=== PATIENT | female | born 1965 | race Caucasian/White ===

== ENCOUNTER 2019-11-16 11:38 | Observation (INO) | payer BC, OTHER ==
[2019-11-16] MEDS ORDERED: cloNIDine HCL 0.1 MG TAB ONE (12:51)
[2019-11-16] MEDS ORDERED: ONDANSETRON 4 MG/2 ML VIAL ONE (12:52)
[2019-11-16] MEDS ORDERED: MORPHINE 4 MG/ML SYR ONE (12:52)
[2019-11-16 13:00] LABS: Absolute Lymphocytes (CBC) 1.6 K/uL (0.7-4.9); Lymphocytes % 34.6 % (15.3-44.8); MPV 8.1 fL (7.6-11.3); RBC Red Blood Cell Count 3.95 M/uL (3.86-4.86)
[2019-11-16 13:02] LABS: Protime INR 0.96
--- NOTE | 2019-11-16 13:20 | RAD REPORT ---
EXAM DESCRIPTION: RAD - Chest Single View - 11/16/2019 1:11 pm CLINICAL HISTORY: CHEST PAIN, hypertension COMPARISON: CHEST PA AND LAT 2 VIEW dated 06/01/2011None. TECHNIQUE: AP portable chest image was obtained 11/16/2019 1:11 pm . FINDINGS: Low lung volumes noted this accentuates baseline interstitial pattern. No focal lung proce ss. No significant failure or volume overload. Heart and vasculature are normal. No measurable pleura l effusion and no pneumothorax. No acute bony abnormality seen. No acute aortic findings suspected. IMPRESSION: No acute cardiopulmonary process. No suspicious change from comparison.
[2019-11-16 13:21] LABS: ALT/SGPT 25 U/L (12-78); AST/SGOT 18 U/L (15-37); Albumin 3.9 g/dL (3.4-5.0); Alkaline Phosphatase 74 U/L (45-117); BUN Blood Urea Nitrogen 13 mg/dL (7-18); Bicarbonate 30 mmol/L (21-32); Bilirubin Direct 0.1 mg/dL (0-0.2); Bilirubin Total 0.4 mg/dL (0.2-1.0); Glucose Level 84 mg/dL (74-106); NT PRO-BNP 98 pg/mL (<125); Potassium 4.1 mmol/L (3.5-5.1); Protein, Total 7.3 g/dL (6.4-8.2); Sodium Level 140 mmol/L (136-145); Troponin (Emerg Dept Use Only) < 0.02 ng/mL (0.0-0.045)
--- NOTE | 2019-11-16 13:37 | EKG ---
Test Date: 2019-11-16 Test Time: 12:14:17 Welding Systems And Equipment Repairer: YELENA MEASUREMENT RESULTS: Intervals: Rate: 95 MT: 174 QRSD: 90 QT: 368 QTc: 462 [place]: P: 50 MT: 174 QRS: 40 T: 34 INTERPRETIVE STATEMENTS: Normal sinus rhythm Cannot rule out Anterior infarct, age undetermined Abnormal ECG Compared to ECG 06/01/2011 13:55:32 Myocardial infarct finding now present Left ventricular hypertrophy no longer present Electronically Signed On 11-16-19 13:36:33 FOUNDER / CEO by Mk Johns
--- NOTE | 2019-11-16 14:22 | RAD REPORT ---
EXAM DESCRIPTION: CT - Head Brain Wo Cont - 11/16/2019 2:05 pm CLINICAL HISTORY: Headache, hypertension COMPARISON: None. TECHNIQUE: Axial 5 mm thick images of the head were obtained without IV contrast. All CT scans are performed using dose optimization technique as appropriate and may include automated exposure control or mA/KV adjustment according to patient size. FINDINGS: No intracranial hemorrhage, mass, edema or shift of mid-line structures. No acute infarcti on changes seen. No abnormal extra-axial fluid collections. Ventricles are normal. Mastoid air cells and visualized portions of the paranasal sinuses are clear. No acute bony findings. IMPRESSION: Negative non-contrast CT head examination.
--- NOTE | 2019-11-16 14:33 | RAD REPORT ---
EXAM DESCRIPTION: CT - Angio Aorta For Dissection - 11/16/2019 2:08 pm CLINICAL HISTORY: chest pain, elevated blood pressure COMPARISON: Portable chest same date TECHNIQUE: Dynamically enhanced 3 mm thick images of the chest, abdomen, and upper pelvis were obtai rose during administration of approximately 150mL Isovue 370 IV contrast. Sagittal and coronal reconst ruction images were generated using MIP and reviewed. Exam utilizes a protocol to evaluate entire cou rse of the aorta. All CT scans are performed using dose optimization technique as appropriate and may include automated exposure control or mA/KV adjustment according to patient size. FINDINGS: Aorta is normal in diameter with no dissection or other acute aortic findings. Reconstruct ion images show no significant findings. Patient has a normal variant aortic arch vascular anomaly. T he right subclavian artery arises from the aortic arch and passes posterior to the esophagus. No sten osis at the great vessel origins. Pulmonary arteries are normal as well. No cardiomegaly, pericardial thickening or pericardial effusio n. No mass or infiltrate in the lung parenchyma. No pleural thickening, pleural effusion or pneumothorax . No abnormal mediastinal or hilar mass or lymphadenopathy seen. No chest wall mass or abnormal axillar y lymphadenopathy. Celiac, SMA and renal arteries show no suspicious findings. Solid abdominal viscera and bowel show no significant findings. No mass or abnormal lymphadenopathy. No free air, free fluid or inflammatory stranding. No urinary bladder abnormality. Patient has prominent diverticulosis without diverticuli tis. Uterus and ovaries show no suspicious findings. Patient has a 15 millimeter nabothian cyst prese nt. No acute bone finding. Patient has prominent degenerative change at the L4-5 disc level. IMPRESSION: Negative CT scan of the aorta. No other significant findings on chest, abdomen and upper pelvis examination.Nonacute findings detail ed in the body of the report.
--- NOTE | 2019-11-16 15:12 | ER ---
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 bp Transition of care: patient was not received from another setting of care. Onset of symptoms is unknown. Risk Assessment: Do you want to hurt yourself or someone else? Patient reports no desire to harm self or others. Initial Sepsis Screen: Does the patient meet any 2 criteria? No. Patient's initial sepsis screen is negative. Does the patient have a suspected source of infection? No. Patient's initial sepsis screen is negative. Care prior to arrival: None. 12:02 Method Of Arrival: Ambulatory bp 12:02 Acuity: KURT 3 bp Triage Assessment: 12:04 General: Appears in no apparent distress. comfortable, obese, Behavior is cooperative, bp appropriate for age, anxious. Pain: Complains of pain in head. EENT: No deficits noted. Neuro: No deficits noted. Cardiovascular: Rhythm is sinus rhythm. Respiratory: No deficits noted. GI: No signs and/or symptoms were reported involving the gastrointestinal system. : No signs and/or symptoms were reported regarding the genitourinary system. Derm: No deficits noted. Musculoskeletal: No deficits noted. Historical: - Allergies: 12:04 No Known Allergies; bp - Home Meds: 12:04 None [Active]; bp - PMHx: 12:04 None; bp - PSHx: 12:04 Cholecystectomy; bp - Immunization history:: Adult Immunizations up to date. - Social history:: Smoking status: Patient denies any tobacco usage or history of. - Ebola Screening: : No symptoms or risks identified at this time. Screenin:06 Abuse screen: Denies threats or abuse. Denies injuries from another. Nutritional bp screening: No deficits noted. Tuberculosis screening: No symptoms or risk factors identified. Fall Risk None identified. Assessment: 12:06 General: SEE TRIAGE NOTE. bp 12:55 Reassessment: CT PENDING, PT EXPRESSING SOME RELIEF OF S/S. bp 13:31 Reassessment: PT S/S IMPROVING, NO S/S ACUTE DISTRESS AT THIS TIME. bp 14:28 Reassessment: PT RESTING QUIETLY, NO S/S OF DISTRESS AT THIS TIME. bp 15:39 Reassessment: ADMIT COMPLETED, BED ASSIGNED. PT C/O GALVEZ, BUT NOW NORMO-TENSIVE ON bp MONITOR. 16:45 Reassessment: PT RANDELL WITH PCT. bp Vital Signs: 12:04 BP 214 / 118; Pulse 99; Resp 19; Temp 98; Pulse Ox 97% ; Weight 83.91 kg; Height 5 ft. bp 8 in. (172.72 cm); 12:54 BP 182 / 99; Pulse 93; Resp 17; Pulse Ox 95% ; bp 13:31 BP 155 / 92; Pulse 88; Resp 17; Pulse Ox 95% ; bp 14:29 BP 134 / 81; Pulse 75; Resp 15; Pulse Ox 96% ; bp 15:39 BP 129 / 72; Pulse 71; Resp 18; Pulse Ox 97% ; bp 16:46 BP 105 / 82; Pulse 58; Resp 15; Pulse Ox 99% ; bp 12:04 Body Mass Index 28.13 (83.91 kg, 172.72 cm) bp ED Course: 11:42 Patient arrived in ED. mr 11:44 Matias Ramos MD is Private Physician. mr 12:02 Miguel A Prieto, THONY is Primary Nurse. bp 12:03 Triage completed. bp 12:04 Arm band placed on. bp 12:05 Juan Pablo Braden PA is PHCP. jm 12:05 Vitor Heaton MD is Attending Physician. jm 12:06 Patient has correct armband on for positive identification. Bed in low position. Call bp light in reach. Side rails up X2. 12:33 EKG done, by hvac controls technician. reviewed by Juan Pablo MCBRIDE. at1 12:55 Initial lab(s) drawn, by ks, sent to lab. Inserted saline lock: 20 gauge in right mh5 antecubital area, using aseptic technique. Blood collected. 12:56 Basic Metabolic Panel Sent. 5 12:56 CBC with Diff Sent. 5 12:56 LFT's Sent. 5 12:56 Magnesium Sent. 5 12:56 NT PRO-BNP Sent. 5 12:56 PT-INR Sent. 5 12:57 Troponin (emerg Dept Use Only) Sent. mh5 13:12 XRAY Chest (1 view) In Process Unspecified. EDMS 14:05 CT Head Brain wo Cont In Process Unspecified. EDMS 14:07 CT Aorta for Dissection In Process Unspecified. EDMS 15:11 Matias Ramos MD is Hospitalizing Provider. m 15:39 No provider procedures requiring assistance completed. Patient admitted, IV remains in bp place. Administered Medications: 12:45 Drug: morphine 4 mg Route: IVP; Site: right antecubital; bp 15:12 Follow up: Response: Pain is decreased bp 12:45 Drug: Zofran 4 mg Route: IVP; Site: right antecubital; bp 15:13 Follow up: Response: No adverse reaction bp 12:45 Drug: cloNIDine 0.1 mg Route: PO; bp 15:13 Follow up: Response: Blood pressure is lowered bp 15:15 Drug: Tylenol 650 mg Route: PO; bp 16:23 Follow up: Response: No adverse reaction bp 15:15 Drug: fentaNYL (PF) 50 mcg Route: IVP; Site: right antecubital; bp 16:23 Follow up: Response: Pain is decreased bp Outcome: 15:11 Decision to Hospitalize by Provider. [facility] 16:22 Admitted to Tele accompanied by tech, family with patient, via wheelchair, room 428, bp with chart, Report called to SATYA BHANDARI 16:22 Condition: stable 16:22 Instructed on the need for admit. 16:47 Patient left the ED. bp Signatures: Dispatcher [employer] EDMS Juan Pablo Braden, REED PA randall MastersonaSia RishabhMelinda, herb counselor EKG Evelio1 Angelia Adhikari [facility] Miguel A Prieto, RN RN bp
--- NOTE | 2019-11-16 15:12 | EDPHYS ---
Physician Documentation [facility] Name: Jade Mckeon Age: 54 yrs Sex: Female : 1965 Arrival Date: 11/16/2019 Time: 11:42 Bed 17 Private MD: Matias Ramos V ED Physician Vitor Heaton HPI: 11/16 12:30 This 54 yrs old Female presents to ER via Ambulatory with complaints of High jmm Blood Pressure. 12:30 The patient has elevated blood pressure and discovered this work. Onset: The jmm symptoms/episode began/occurred at an unknown time. Modifying factors: The symptoms are aggravated by The symptoms are alleviated by. Associated signs and symptoms: Pertinent positives: chest pain, headache. This is a 54 year old female with no known chronic medical conditions that presents to the ED with chest pain with radiation to the left side of her neck. Headache. Patient states that her blood pressure was high at work but does not known the duration of elevated blood pressure. Patient denies abdominal pain. Patient states a coworkers noticed blood in her left eye. Denies ocular pain. . Historical: - Allergies: 12:04 No Known Allergies; bp - Home Meds: 12:04 None [Active]; bp - PMHx: 12:04 None; bp - PSHx: 12:04 Cholecystectomy; bp - Immunization history:: Adult Immunizations up to date. - Social history:: Smoking status: Patient denies any tobacco usage or history of. - Ebola Screening: : No symptoms or risks identified at this time. ROS: 12:30 Constitutional: Negative for fever, chills, and weight loss. jmm 12:30 Cardiovascular: Positive for chest pain. 12:30 Neuro: Positive for headache. 12:30 All other systems are negative. Exam: 12:30 Constitutional: This is a well developed, well nourished patient who is awake, alert, jmm and in no acute distress. Head/Face: atraumatic. 12:30 ENT: Moist Mucus Membranes Neck: Trachea midline, Supple Chest/axilla: Normal chest wall appearance and motion. 12:30 Abdomen/GI: Non distended, soft Back: Normal ROM Skin: General appearance color normal MS/ Extremity: Moves all extremities, no obvious deformities appreciated, no edema noted to the lower extremities Neuro: Awake and alert, normal gait Psych: Behavior is normal, Mood is normal, Patient is cooperative and pleasant 12:30 Eyes: Extraocular movements: intact throughout, Sclera: CHERELLE. 12:30 Cardiovascular: Rate: normal, Rhythm: regular. 12:30 Respiratory: the patient does not display signs of respiratory distress, Respirations: normal, Breath sounds: are clear throughout. Vital Signs: 12:04 BP 214 / 118; Pulse 99; Resp 19; Temp 98; Pulse Ox 97% ; Weight 83.91 kg; Height 5 ft. bp 8 in. (172.72 cm); 12:54 BP 182 / 99; Pulse 93; Resp 17; Pulse Ox 95% ; bp 13:31 BP 155 / 92; Pulse 88; Resp 17; Pulse Ox 95% ; bp 14:29 BP 134 / 81; Pulse 75; Resp 15; Pulse Ox 96% ; bp 15:39 BP 129 / 72; Pulse 71; Resp 18; Pulse Ox 97% ; bp 16:46 BP 105 / 82; Pulse 58; Resp 15; Pulse Ox 99% ; bp 12:04 Body Mass Index 28.13 (83.91 kg, 172.72 cm) bp MDM: 12:30 Patient medically screened. [facility] 15:10 Data reviewed: vital signs, nurses notes. Counseling: I had a detailed discussion with paige the patient and/or guardian regarding: the historical points, exam findings, and any diagnostic results supporting the discharge/admit diagnosis, lab results, radiology results, the need for further work-up and treatment in the hospital. ED course: I discussed the patient with Dr. Ramos whom accepted admission. . 11/16 12:31 Order name: Basic Metabolic Panel; Complete Time: 13:23 [facility] 11/16 12:31 Order name: CBC with Diff; Complete Time: 13:04 [facility] 11/16 12:31 Order name: LFT's; Complete Time: 13:23 [facility] 11/16 12:31 Order name: Magnesium; Complete Time: 13:23 [facility] 11/16 12:31 Order name: NT PRO-BNP; Complete Time: 13:23 [facility] 11/16 12:31 Order name: PT-INR; Complete Time: 13:16 [facility] 11/16 12:31 Order name: Troponin (emerg Dept Use Only); Complete Time: 13:23 [facility] 11/16 15:16 Order name: Basic Metabolic Panel [facility] 11/16 15:16 Order name: Basic Metabolic Panel [facility] 11/16 15:16 Order name: CBC with Automated Diff [facility] 11/16 15:16 Order name: CBC with Automated Diff [facility] 11/16 15:16 Order name: Troponin I [facility] 11/16 15:16 Order name: Troponin I [facility] 11/16 15:16 Order name: Troponin I [facility] 11/16 12:31 Order name: XRAY Chest (1 view); Complete Time: 13:23 [facility] 11/16 12:31 Order name: EKG; Complete Time: 12:32 [facility] 11/16 12:31 Order name: Cardiac monitoring; Complete Time: 12:54 [facility] 11/16 12:34 Order name: CT Head Brain wo Cont; Complete Time: 14:31 [facility] 11/16 12:35 Order name: CT Aorta for Dissection; Complete Time: 14:49 [facility] 11/16 15:16 Order name: CONS Physician Consult [facility] 11/16 15:16 Order name: Consistent Carb (ADA) [address] [facility] 11/16 15:16 Order name: EKG Electrocardiogram [facility] 11/16 15:16 Order name: EKG Electrocardiogram [facility] 11/16 15:16 Order name: EKG Electrocardiogram [facility] 11/16 15:16 Order name: EKG Electrocardiogram [facility] 11/16 12:31 Order name: EKG - Nurse/Tech; Complete Time: 12:42 [facility] 11/16 12:31 Order name: IV Saline Lock; Complete Time: 12:54 [facility] 11/16 12:31 Order name: Labs collected and sent; Complete Time: 12:54 [facility] 11/16 12:31 Order name: O2 Per Protocol; Complete Time: 12:54 [facility] 11/16 12:31 Order name: O2 Sat Monitoring; Complete Time: 12:54 jm Administered Medications: 12:45 Drug: morphine 4 mg Route: IVP; Site: right antecubital; bp 15:12 Follow up: Response: Pain is decreased bp 12:45 Drug: Zofran 4 mg Route: IVP; Site: right antecubital; bp 15:13 Follow up: Response: No adverse reaction bp 12:45 Drug: cloNIDine 0.1 mg Route: PO; bp 15:13 Follow up: Response: Blood pressure is lowered bp 15:15 Drug: Tylenol 650 mg Route: PO; bp 16:23 Follow up: Response: No adverse reaction bp 15:15 Drug: fentaNYL (PF) 50 mcg Route: IVP; Site: right antecubital; bp 16:23 Follow up: Response: Pain is decreased bp Disposition: 11/16/19 15:11 Hospitalization ordered by Matias Ramos for Observation. Preliminary diagnosis are Chest pain, unspecified, Elevated Blood Pressure. - Bed requested for Telemetry/MedSurg (observation). - Status is Observation. bp - Condition is Stable. - Problem is new. - Symptoms have improved. UTI on Admission? No Addendum: 11/18/2019 19:42 Co-signature as Attending Physician, Vitor Heaton MD. r n Signatures: Dispatcher [employer] EDMS Juan Pablo Braden PA PA jmm Nieto, Roman, MD MD rn Aguilar, Jose, RN RN ja1 Miguel A Prieto RN RN bp Corrections: (The following items were deleted from the chart) 11/16 15:36 15:11 Hospitalization Ordered by Matias Ramos MD for Observation. Preliminary diagnosis ja1 is Chest pain, unspecified; Elevated Blood Pressure. Bed requested for Telemetry/MedSurg (observation). Status is Observation. Condition is Stable. Problem is new. Symptoms have improved. UTI on Admission? No. [facility] 16:47 15:36 11/16/2019 15:11 Hospitalization Ordered by Matias Ramos MD for Observation. bp Preliminary diagnosis is Chest pain, unspecified; Elevated Blood Pressure. Bed requested for Telemetry/MedSurg (observation). Status is Observation. Condition is Stable. Problem is new. Symptoms have improved. UTI on Admission? No. ja1
[2019-11-16] MEDS ORDERED: ACETAMINOPHEN 500 MG TAB PO PRN (15:14)
[2019-11-16] MEDS ORDERED: ONDANSETRON 4 MG/2 ML VIAL IV PRN (15:14)
[2019-11-16] MEDS ORDERED: ACETAMINOPHEN 325 MG TABLET ONE (15:24)
[2019-11-16] MEDS ORDERED: FENTANYL CITR 100 MCG/2 ML ONE (15:24)
[2019-11-16 17:21] VITALS: BMI 28.1
--- NOTE | 2019-11-16 18:10 | P.HP ---
Certification for Inpatient Patient admitted to: Observation With expected LOS: <2 Midnights Practitioner: I am a practitioner with admitting privileges, knowledge of patient current condition, hospital course, and medical plan of care. Services: Services provided to patient in accordance with Admission requirements found in Title 42 Section 412.3 of the Code of Federal Regulations Patient History Date of Service: 11/16/19 Reason for admission: BP HIGH History of Present Illness: CAMELIA HAS HIGH BP FOR TWO WEEKS, HER BP WENT TO 180 SYSTOLIC TODAY AND SHE WAS BROUGHT TO ER. SHE HAD CHEST PAIN AND L SIDE FACE PAIN WITH IT. SHE WAS GIVEN CLONIDINE ONCE AND BP CAME DOWN, NOW UP TO 150 AGAIN. SHE IS COMFORTABLE WITHOUT PAIN NOW. 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 Allergies No Known Allergies Allergy (Unverified 11/16/19 16:44) Home Medications: NK [No Home Meds] 11/16/19 - Past Medical/Surgical History Diabetic: No -: Indigestion -: Cholecystectomy -: - Family History Father -: Cancer Mother -: Heart disease - Social History Smoking Status: Never smoker Alcohol use: No CD- Drugs: No Caffeine use: Yes Place of Residence: Home Review of Systems 10-point ROS is otherwise unremarkable Physical Examination - Vital Signs Temperature: 97.1 F Blood Pressure: 163/84 Pulse: 59 Respirations: 10 Pulse Ox (%): 100 - Physical Exam General: Alert, In no apparent distress HEENT: Atraumatic, PERRLA, Mucous membr. moist/pink, EOMI, Sclerae nonicteric Neck: Supple, 2+ carotid pulse no bruit, No LAD, Without JVD or thyroid abnormality Respiratory: Clear to auscultation bilaterally, Normal air movement Cardiovascular: Regular rate/rhythm, Normal S1 S2 Gastrointestinal: Normal bowel sounds, No tenderness Musculoskeletal: No tenderness Integumentary: No rashes Neurological: Normal gait, Normal speech, Normal strength at 5/5 x4 extr, Normal tone, Normal affect Lymphatics: No axilla or inguinal lymphadenopathy - Studies Laboratory Data (last 24 hrs) 11/16/19 12:48: PT 11.3, INR 0.96 11/16/19 12:48: WBC 4.7, Hgb 12.9, Hct 38.0, Plt Count 317 11/16/19 12:48: Sodium 140, Potassium 4.1, BUN 13, Creatinine 0.72, Glucose 84, Magnesium 2.0, Total Bilirubin 0.4, AST 18, ALT 25, Alkaline Phosphatase 74 Assessment and Plan - Problems (Diagnosis) (1) Uncontrolled hypertension Current Visit: Yes Status: Acute Plan: SHE WAS ON ZEBETA 8 YEARS AGO. I WILL RESTART COREG FOR NOW. I DON'T SUSPECT SECONDARY CAUSES. HER LAB IS GOOD. (2) Chest pain Current Visit: Yes Status: Acute Plan: MOSTLY FROM HIGH BP EKG SHOW ANT CHANGES. WILL NEED OP ST TEST. - Advance Directives Does patient have a Living Will: No Does patient have a Durable POA for Healthcare: No
[2019-11-16 19:52] LABS: Urine Appearance CLEAR; Urine Bilirubin NEGATIVE (NEG); Urine Blood NEGATIVE (NEG); Urine Color YELLOW; Urine Glucose NEGATIVE (NEG); Urine Protein NEGATIVE (NEG); Urine Specific Gravity >=1.030 (1.005-1.030); Urine Urobilinogen 0.2 mg/dL (0.2-1.0); Urine pH 6.5 (5.0-7.0)
[2019-11-16 20:08] LABS: Urine Bacteria <20 /HPF (<20); Urine RBC NONE SEEN /HPF (NONE SEEN)
[2019-11-16 20:09] LABS: Urine Culture Reflex Order NOT NEEDED
[2019-11-16] MEDS: carvediloL 12.5 MG TAB PO SCH (21:14)
[2019-11-17 04:57] LABS: Absolute Lymphocytes (CBC) 1.7 K/uL (0.7-4.9); Lymphocytes % 39.1 % (15.3-44.8); MPV 8.3 fL (7.6-11.3); RBC Red Blood Cell Count 3.49 M/uL (3.86-4.86)
[2019-11-17 05:15] LABS: Potassium 4.3 mmol/L (3.5-5.1)
[2019-11-17] MEDS: carvediloL 12.5 MG TAB PO SCH (08:31)
[2019-11-17 08:32] VITALS: BP 131/62
[2019-11-17 08:39] VITALS: O2SAT 94
--- NOTE | 2019-11-17 08:54 | CON ---
Mrs. Mckeon has a history of hypertension, but run off medicines, did not have much medical followup for several years. Started noticing she was feeling a little lightheaded and dizzy. Her blood press ure checked; it was elevated. There was a very small subconjunctival hemorrhage in her left eye. Dustin arauz had a choking feeling, numbness in the left side of her face, came to the emergency room and there was found again to be hypertensive. She has been treated with carvedilol and clonidine. Clonidine l ast dose was yesterday, so it will not be having any effect by this time, and today's blood pressure is very good. She is on Coreg 12.5 b.i.d. In the past, her blood pressure had been well controlled with she seems to have blood pressure that is fairly easily controlled with low-dose beta- blockers. She has never had myocardial infarction, stroke. Does not have diabetes or dyslipidemia. CAT scan of the head is normal. CAT scan looking for aortic dissection is normal. EKG reveals mild LVH, questionable septal DC. Cardiac enzymes are normal. Physical Examination: General: She is 5 feet 8 inches, 185 pounds. Body mass index 28. HEENT: Normal. Lungs: Clear. Cardiac: Normal. Carotids, no bruit. Extremities: Normal pulses. No cyanosis, clubbing, or edema. Impression: Patient has had a hypertensive crisis. This is not an acute coronary syndrome as her EK G shows a questionable septal myocardial infarction, needs to be looked into an echo and a nuclear st ress test those could both be done as an outpatient. She does not need to stay in the hospital and s he does need to take better care of her health, see physicians, and stay on blood pressure medicines, but she does not need to have testing done in the hospital beyond what has already been done. She will be discharged to undergo outpatient echocardiogram and nuclear stress te st. DUSTIN/CELIA Voice ID: [id number] Report ID: [id number]
[2019-11-17] MEDS ORDERED: ASPIRIN EC 81 MG TAB PO SCH (09:00)
[2019-11-17 09:54] VITALS: TEMP 97
--- NOTE | 2019-11-17 14:32 | EKG ---
Test Date: 2019-11-17 Test Time: 09:26:33 Energy Efficient Site Manager: SHAR MEASUREMENT RESULTS: Intervals: Rate: 62 [place]: 166 QRSD: 92 QT: 440 QTc: 446 [place]: P: 50 [place]: 166 QRS: 61 T: 51 INTERPRETIVE STATEMENTS: Normal sinus rhythm Normal ECG Compared to ECG 11/16/2019 12:14:17 Myocardial infarct finding no longer present Electronically Signed On 11-17-19 14:30:41 DRIVE SHAFT AND STEERING POST REPAIRER by Alessio Encarnacion
--- NOTE | 2019-11-17 20:30 | DS ---
Date of Discharge: 11/17/2019 Final Diagnosis: Uncontrolled hypertension. Secondary Diagnosis: Noncompliance with medications. Hospital Course: Patient has been to our office about 8 years ago. She has not been to any doctor s venkat then. 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 She called my office and I said to come in right away, but instead of coming to the office she end ed up in the emergency room because she had slight chest pain. This could be just because of hyperte nsion. She is now stable on Coreg 12.5 mg p.o. b.i.d. I am changing her to bisoprolol/HCTZ 10/12.5 once a day because compliance will be better with once a day medication for and she was on that medic ine before and did really well. I am discharging her in stable condition. She will be following up in office in about 2 days. I do not see any secondary causes of hypertension. Her condition is stab le currently. SHIMON/CELIA Voice ID: [id number] Report ID: [id number]
== END 2019-11-17 10:35 | disposition home or self-care (01) ==
LOC: ER 11:38 → ERHOLD 15:13 → 4TH 16:24
PROVIDERS: ADMIT Internal Medicine; ATTEND Internal Medicine
DX: I10 Essential (primary) hypertension (principal); Z91.14 Patient's other noncompliance with medication regimen
CPT/HCPCS: 36415; 70450; 71045; 71275; 74175; 80048; 80076; 81001; 83735; 83880; 84484; 85025; 85610; 93005; 96374; 96375; 99285; G0378; J2405; J3010; Q9967